=== PATIENT | male | born 1985 | race Caucasian/White ===

== ENCOUNTER 2016-07-18 19:13 | Emergency (ER) | payer OTHER ==
[2016-07-18 19:16] VITALS: BP 142/84; PULSE 83; RESP 16; TEMP 97.7; O2SAT 95
--- NOTE | 2016-07-18 19:37 | EDPHY ---
General Time Seen by Provider: 07/18/16 19:23 Narrative: CHIEF COMPLAINT: Right ankle pain, injury HISTORY OF PRESENT ILLNESS: Patient was playing soccer this evening around 6: 50 p.m. when he was kicked in the right foot. He reports an inversion injury. Sudden onset of pain on the right lateral ankle. It is a significant amount of swelling to the area. Worse with palpation and ambulation. He is able to bear weight with pain. No numbness or tingling to the foot. No radiating pain. No pain in the proximal fibula. No lacerations or abrasions. There is some ecchymosis. Several prior ankle sprains to this limb as well as a surgical removal of an os trigonum. No injuries elsewhere. No other associated complaints or modifying factors. PRIOR ORTHO INJURIES: Os trigonum removal. Multiple sprains REVIEW OF SYSTEMS: Ten systems reviewed and are negative unless otherwise noted in the HPI EXAMINATION General Appearance: Alert, no distress Cardiovascular: Pulses normal throughout. Symmetric DP and PT pulses at 2+. Brisk cap refill Neurological: A&O, sensory symmetric, strength symmetric. Normal proprioception of the right great toe. Skin: Warm and dry, no rash. Mild ecchymosis on the dorsum and lateral aspect of the right foot. No abrasion. No laceration. Extremities: Right lower extremity: Moderate edema with the right lateral malleolus. There is moderate tenderness to this location. There is no crepitus. No deformity. No tenderness in the proximal right fibula. Range of motion is intact but painful. Neurovascular intact distal to the injury. Psychiatric: Mood and affect normal DIFFERENTIAL DIAGNOSES: Including but not limited to fracture, dislocation, fracture-dislocation, sprain , strain, hematoma MDM: 7:35 p.m. Acute right ankle sprain from soccer injury. He has significant swelling and tenderness over the lateral malleolus. First interpretation of the x-ray shows no obvious, or displaced fibular fracture. There is a bony structure distal to the medial malleolus that appears chronic and is not painful on examination. He is neurovascular intact. He are he has crutches at home. Will place him in an Russel wrap, he will use his crutches and follow up with Orthopedics for definitive care. He has declined a Shaw boot at this time due to the significant swelling. 7:40 p.m. Radiology interpretation degrees. No acute fracture. I discussed the possible avulsion fracture this is consistent with previous injuries in history. Clinically he has no pain over the medial malleolus or the talus. He is neuro intact. Placed in a Russel wrap and he will use his own crutches. Patient is too swollen for food and he has declined the Shaw boot as well. He will follow up with Orthopedics for definitive care. ED Precautions: Worsening pain. Erythema, edema, cyanosis, pallor, paresthesia or anesthesia. SUPERVISION: This patient was independently evaluated without direct examination by the attending physician. Case was discussed with attending physician. - History Smoking Status: Never smoked - Objective Vital Signs: Initial Vital Signs Temperature (C) 97.7 F 07/18/16 19:14 Heart Rate 83 07/18/16 19:14 Respiratory Rate 16 07/18/16 19:14 Blood Pressure 142/84 H 07/18/16 19:14 O2 Sat (%) 95 07/18/16 19:14 O2 Delivery Mode Room Air Allergies/Adverse Reactions: cefdinir [From Omnicef] Allergy (Severe, Verified 07/18/16 19:16) Hives Penicillins Allergy (Severe, Verified 07/18/16 19:16) Swelling/neck,face,throat Home Medications: Medication Instructions Recorded NK [No Known Home Meds] 08/26/14 Departure - Departure Disposition: Home, Routine, Self-Care Clinical Impression: Moderate ankle sprain Qualifiers: Encounter type: initial encounter Laterality: right Qualified Code(s): S93.401A - Sprain of unspecified ligament of right ankle, initial encounter Condition: Good Instructions: Ankle Sprain (ED) Additional Instructions: Weightbearing as tolerated. Follow up with Orthopedics for definitive care. Return to ER for worsening pain, increasing swelling, numbness, or weakness Referrals: Marvin Perez MD [Medical Doctor] - As per Instructions
== END 2016-07-18 19:50 | disposition home or self-care (01) ==
DX: S93.401A Sprain of unspecified ligament of right ankle, initial encounter (principal); W21.02XA Struck by soccer ball, initial encounter; Y92.322 Soccer field as the place of occurrence of the external cause; Y99.8 Other external cause status; Y93.66 Activity, soccer